=== PATIENT | female | born 1990 | race African-American/Black ===

== ENCOUNTER 2017-06-12 12:12 | Emergency (ER) | payer OTHER ==
[2017-06-12 12:14] VITALS: BP 105/62; PULSE 95; RESP 20; TEMP 98.7; O2SAT 99
--- NOTE | 2017-06-12 12:44 | PD ---
HPI Chief Complaint: Related Problem Time Seen by Provider: 12:44 Travel History International Travel<30 days: No Contact w/Intl Traveler<30days: No Traveled to known affect area: No History of Present Illness HPI 26-year-old female, approximately 15-16 weeks , with complaint of light , pink tinged spotting that started last night. Denies abdominal pain or cramping. Says the spotting is not bright red. Reports dysuria. Denies frequency, urgency, hematuria. Denies abnormal vaginal discharge, odor, itch, lesions. Denies fever, vomiting, diarrhea. Her l[facility]pc is at [facility] and last had follow-up in April. 1 para 0. No known allergies. Denies significant past medical history. No other modifying factors or associated signs and symptoms. PFSH Past Medical History Diminished Hearing: No Immunizations Current: Yes ?: Social History Alcohol Use: Yes (socially) Tobacco Use: No (never) Substance Use: No Allergies-Medications (Allergen,Severity, Reaction): Coded Allergies: No Known Allergies (Verified , 06/12/17) Reported Meds & Prescriptions Reported Meds & Active Scripts Active Keflex (Cephalexin) 500 Mg Cap 500 Mg PO Q12H 7 Days Review of Systems Except as stated in HPI: all other systems reviewed are Neg Physical Exam Narrative GENERAL: Well-nourished, well-developed female patient, in no acute distress SKIN: Warm and dry. HEAD: Atraumatic. Normocephalic. EYES: Pupils equal and round. No scleral icterus. No injection or drainage. ENT: Mucosa pink and moist. Airway patent. NECK: Trachea midline. CARDIOVASCULAR: Regular rate and rhythm. No murmur appreciated. RESPIRATORY: No accessory muscle use. Clear to auscultation. Breath sounds equal bilaterally. GASTROINTESTINAL: . Abdomen soft, non-tender, nondistended. Hepatic and splenic margins not palpable. Bowel sounds are active 4 quadrants. Bladder nontender and nondistended. PELVIC: Cervical os is closed. No vaginal blood noted on exam. MUSCULOSKELETAL: No obvious deformities. No clubbing. No cyanosis. No edema. NEUROLOGICAL: Awake and alert. Oriented 3. No obvious cranial nerve deficits. Motor grossly within normal limits. Normal speech. PSYCHIATRIC: Appropriate mood and affect; insight and judgment normal. Data Data Last Documented VS Vital Signs Date Time Temp Pulse Resp B/P Pulse Ox O2 Delivery O2 Flow Rate FiO2 06/12/17 12:30 16 06/12/17 12:14 98.7 95 105/62 99 Room Air Orders Complete Blood Count With Diff (06/12/17 12:32) Basic Metabolic Panel (Bmp) (06/12/17 12:32) Urinalysis - C+S If Indicated (06/12/17 12:32) Iv Access Insert/Monitor (06/12/17 12:32) Beta Hcg (Quant/Titer) (06/12/17 12:32) Complete Rh (06/12/17 12:43) Heart Tones (06/12/17 15:33) Urine Culture (06/12/17 15:30) Labs Laboratory Tests Test 06/12/17 06/12/17 12:45 15:30 White Blood Count 9.6 TH/MM3 Red Blood Count 3.67 MIL/MM3 Hemoglobin 10.6 GM/DL Hematocrit 31.6 % Mean Corpuscular Volume 86.0 FL Mean Corpuscular Hemoglobin 28.8 PG Mean Corpuscular Hemoglobin 33.5 % Concent Red Cell Distribution Width 14.7 % Platelet Count 218 TH/MM3 Mean Platelet Volume 7.5 FL Neutrophils (%) (Auto) 77.4 % Lymphocytes (%) (Auto) 14.6 % Monocytes (%) (Auto) 7.1 % Eosinophils (%) (Auto) 0.6 % Basophils (%) (Auto) 0.3 % Neutrophils # (Auto) 7.5 TH/MM3 Lymphocytes # (Auto) 1.4 TH/MM3 Monocytes # (Auto) 0.7 TH/MM3 Eosinophils # (Auto) 0.1 TH/MM3 Basophils # (Auto) 0.0 TH/MM3 CBC Comment DIFF FINAL Differential Comment Sodium Level 138 MEQ/L Potassium Level 3.4 MEQ/L Chloride Level 107 MEQ/L Carbon Dioxide Level 24.4 MEQ/L Anion Gap 7 MEQ/L Blood Urea Nitrogen 5 MG/DL Creatinine 0.43 MG/DL Estimat Glomerular Filtration 218 ML/MIN Rate Random Glucose 74 MG/DL Calcium Level 8.1 MG/DL Human Chorionic Gonadotropin, 48816 MIU/ML Quant Blood Type O POSITIVE Rho(D) Type POSITIVE Urine Color YELLOW Urine Turbidity CLOUDY Urine pH 8.0 Urine Specific [place] 1.014 Urine Protein NEG mg/dL Urine Glucose (UA) NEG mg/dL Urine Ketones NEG mg/dL Urine Occult Blood SMALL Urine Nitrite NEG Urine Bilirubin NEG Urine Urobilinogen LESS THAN 2.0 MG/DL Urine Leukocyte Esterase SMALL Urine RBC 25 /hpf Urine WBC 14 /hpf Urine Squamous Epithelial 1 /hpf Cells Urine Amorphous Sediment RARE Microscopic Urinalysis Comment CULTURE INDICATED MDM Medical Decision Making Medical Screen Exam Complete: Yes Emergency Medical Condition: Yes Medical Record Reviewed: Yes Differential Diagnosis Threatened miscarriage, urinary tract infection, cystitis Narrative Course Approximately 15-16 week , 26-year-old female, with light vaginal spotting started yesterday. G1, para 0. Denies abdominal pain or cramping. I spoke with Dr. Hunter, my attending physician, and he agrees with my plan of care. CBC, BMP, beta hCG, urinalysis, pelvic ultrasound ordered. 1358: Hemoglobin 10.6. Potassium 3.4. Beta hCG 70738. Blood type O positive. Rh+. 1655: Urine analysis for signs of infection. 1710: Cervical os is closed. No vaginal blood noted on digital exam. HR 156. Keflex prescribed for home. Follow-up with lcpc in one day. Instructed patient to follow up with primary care provider. Patient verbalizes understanding and agreement with treatment plan. Patient is medically cleared and stable for discharge. Discussed reasons to return to the emergency department. Patient agrees with treatment plan. The patients vital signs are stable and the patient is stable for outpatient follow-up and treatment. Patient discharged home, stable and in no acute distress. Diagnosis Primary Impression: Threatened miscarriage Additional Impression: UTI (urinary tract infection) Qualified Code: N39.0 - Urinary tract infection without hematuria, site unspecified Referrals: Radio/Tv Technician Primary Care Physician Patient Instructions: General Instructions, Threatened Miscarriage (ED), Urinary Tract Infection in Children (ED) Additional Instructions: Take antibiotics as prescribed and complete full course Drink plenty of fluids Maintain good personal hygiene Follow-up with primary care provider Follow-up with lcpc one day Return to the emergency department immediately with worsening of symptoms Med/Other Pt SpecificInfo: Prescription(s) given Scripts Cephalexin (Keflex)500 Mg [id number] Mg PO Q12H 7 Days Ref 0 Prov:Kecia Johnson 06/12/17 Disposition: DISCHARGE HOME Condition: Stable Kecia Johnson Jun 12, 2017 12:44
[2017-06-12 13:02] LABS: AUTOMATED NEUTROPHIL # 7.5 TH/MM3 (1.8-7.7); BASOPHIL % 0.3 % (0.0-2.0); EOSINOPHIL # 0.1 TH/MM3 (0-0.4); EOSINOPHIL % 0.6 % (0.0-4.0); HEMATOCRIT 31.6 % (35.0-46.0); HEMO FLAGS DIFF FINAL; LYMPH % 14.6 % (9.0-44.0); LYMPHOCYTE # 1.4 TH/MM3 (1.0-4.8); MEAN CORPUSCULAR HEMOGLOBIN 28.8 PG (27.0-34.0); MEAN CORPUSCULAR HGB CONC 33.5 % (32.0-36.0); MONO % 7.1 % (0.0-8.0); NEUT % 77.4 % (16.0-70.0); PLATELET COUNT 218 TH/MM3 (150-450); RED BLOOD COUNT 3.67 MIL/MM3 (4.00-5.30); RED CELL DISTRIBUTION WIDTH 14.7 % (11.6-17.2); WHITE BLOOD COUNT 9.6 TH/MM3 (4.0-11.0)
[2017-06-12 13:20] LABS: BICARBONATE 24.4 MEQ/L (21.0-32.0); POTASSIUM 3.4 MEQ/L (3.5-5.1)
[2017-06-12 16:24] LABS: BLOOD, URINE SMALL (NEG); COMMENT (UR) CULTURE INDICATED; CULTURE IF INDICATED CULTURE INDICATED; GLUCOSE,URINE NEG (NEG); KETONE, URINE NEG (NEG); NITRITE,URINE NEG (NEG); SQUAMOUS EPITHELIAL CELL URINE 1 /hpf (0-5); URINE COLOR YELLOW (YELLW/STRAW)
[2017-06-12] MEDS ORDERED: CEPH-460 PO (16:57)
[2017-08-03] MEDS ORDERED: PREN1CAP7 PO ×2 (09:58→17:13)
[2017-08-03] MEDS ORDERED: FERRTAB2 PO (09:58)
[2017-08-03] MEDS ORDERED: METR500T10 PO (17:13)
== END 2017-06-12 17:34 | disposition home or self-care (01) ==
LOC: NEPD 12:12
DX: O20.0 Threatened abortion (principal); O23.42 Unspecified infection of urinary tract in pregnancy, second trimester; B96.89 Other specified bacterial agents as the cause of diseases classified elsewhere; Z3A.16 16 weeks gestation of pregnancy
CPT/HCPCS: 80048; 81001; 84702; 85025; 86901; 87086; 99283

== ENCOUNTER 2017-08-31 16:07 | Emergency (ER) | payer MEDICAID, OTHER ==
[~2017-08-31] VITALS: Ht 152.4 cm; Wt 53.0 kg
[~2017-08-31 16:07] MED LIST: FERRTAB2 PO; PREN1CAP7 PO
[2017-08-31 16:08] VITALS: BP 114/66; PULSE 101; RESP 20; TEMP 98.7; O2SAT 98
--- NOTE | 2017-08-31 16:45 | PD ---
HPI Chief Complaint: ENT Complaint Time Seen by Provider: 16:39 Travel History International Travel<30 days: No Contact w/Intl Traveler<30days: No Traveled to known affect area: No History of Present Illness HPI 26-year-old female here for evaluation. She reports over the past few days she has had congestion and tender anterior cervical lymph nodes. Symptoms are mild , aggravated by congestion. She denies cough, sore throat, ear pain, fevers or chills, recent unexplained weight loss. She reports that she gets similar symptoms every year around this time of the year. She has no other complaints at this time. History Social History Alcohol Use: Yes (socially) Tobacco Use: No (never) Allergies-Medications (Allergen,Severity, Reaction): Coded Allergies: No Known Allergies (Verified Adverse Reaction, Unknown, 08/31/17) Reported Meds & Prescriptions Reported Meds & Active Scripts Active Ferralet (Multi-Vit/Iron-Folic [id number] C) 90-1-0.012-120 mg Tab 1 Caplet PO DAILY 30 Days Citranatal [place] ( W/O Vit A W/ Fe Fumar) 27-1-260 Mg Cap 1 Cap PO DAILY Citranatal [place] ( W/O Vit A W/ Fe Fumar) 27-1-260 Mg Cap 1 Cap PO DAILY Review of Systems General / Constitutional: No: Fever, Chills, Weight Loss HENT: Positive: Congestion, No: Headaches, Sore Throat Respiratory: No: Cough Skin: No Rash Physical Exam Narrative GENERAL: Well-developed well-nourished female in no acute distress SKIN: Warm and dry. HEAD: Atraumatic. Normocephalic. EYES: Pupils equal and round. No scleral icterus. No injection or drainage. ENT: No nasal bleeding or discharge. Mucous membranes pink and moist. There is no oropharyngeal erythema or exudate. Tympanic membranes appear normal without erythema or air fluid level. NECK: Trachea midline. No JVD. Mild tender anterior cervical lymphadenopathy is present. Neck is supple full range of motion. CARDIOVASCULAR: Regular rate and rhythm. No murmur appreciated. RESPIRATORY: No accessory muscle use. Clear to auscultation. Breath sounds equal bilaterally. Data Data Last Documented VS Vital Signs Date Time Temp Pulse Resp B/P (MAP) Pulse Ox O2 Delivery O2 Flow Rate FiO2 08/31/17 16:08 98.7 101 20 114/66 (82) 98 Room Air [facility] Medical Screen Exam Complete: Yes Emergency Medical Condition: No Narrative Course The patient appears to have reactive lymphadenopathy and rhinitis. This is most likely viral. She understands the importance of following up with her primary care physician if lymphadenopathy persists after her cold symptoms have resolved. A medical screening exam was performed: At the time of evaluation the presenting medical condition was determined not to be of an emergent nature. The patient was given the option of receiving additional care, but declined. Patient was given options for additional community resources from which to obtain care. The Patient Has Been advised to seek medical attention for their presenting complaint. The patient has been advised to return to the ER at any time if an emergent condition develops. Primary Impression: Encounter for medical screening examination Patrick Steiner Aug 31, 2017 16:45
== END 2017-08-31 16:50 | disposition left against medical advice (07) ==
LOC: NEPK 16:07
DX: R59.1 Generalized enlarged lymph nodes (principal); J31.0 Chronic rhinitis; Z79.899 Other long term (current) drug therapy
CPT/HCPCS: 99281

== ENCOUNTER 2017-11-06 23:36 | Inpatient (IN) | payer MEDICAID ==
[~2017-11-06] VITALS: Ht 154.9 cm; Wt 59.0 kg
[~2017-11-06 23:36] MED LIST changes: -FERRTAB2 PO
[2017-11-07] VITALS (85 sets, daily range): BP systolic 91–128; BP diastolic 50–101; PULSE 81–115; RESP 1–20; TEMP 98–99.1
[2017-11-07] MEDS: LACTATED RINGER'S 1000 ML INJ 1,000 ML IV SCH ×2 (00:26→02:47)
[2017-11-07] MEDS ORDERED: LACTATED RINGER'S 1000 ML INJ 1,000 ML IV PRN (00:26)
--- NOTE | 2017-11-07 00:26 | HHI.HP ---
History & Physical H&P Patient Name: Niyah Mazariegos Unit Number: [id number] Date of : 1990 Patient Status: Registered Emergency Room Attending Doctor: Phil Booth MD HPI HPI Chief Complaint Contractions Date Seen: Nov 07, 2017 Time Seen: 00:21 Travel History International Travel<30 Days: No Contact w/Intl Traveler<30Days: No Known Affected Area: No History of Present Illness HPI 27-year-old primigravida at 40 weeks and 2 days gestation who comes reporting increasing contractions throughout the day. She also has lost her mucous plug. She denies any rupture membranes or bleeding. History (Limited) History Past Medical History Medical History: Denies Significant Hx Past Surgical History Surgical History: No Previous Surgery Family History Family History: Negative Social History Alcohol Use: No Tobacco Use: No Substance Abuse: No Allergies-Medications Allergies-Medications (Allergen,Severity, Reaction): Coded Allergies: No Known Allergies (Verified Adverse Reaction, Unknown, 11/07/17) Home Meds Active Scripts W/O Vit A W/ Fe Fumar (Citranatal [place]) 27-1-260 Mg Cap, 1 CAP PO DAILY for Nutritional Supplement, #30 CAPLET 3 Refills Prov:Meli Morrow CNM [facility] 09/28/17 ROS Review of Systems Except as stated in HPI: all other systems reviewed are Neg Physical Exam Physical Exam Narrative GENERAL: Well-nourished, well-developed patient. SKIN: Warm and dry. HEAD: Normocephalic and atraumatic. EYES: No scleral icterus. No injection or drainage. ENT: No nasal drainage noted. Mucous membranes pink. Airway patent. NECK: Supple, trachea midline. No JVD. CARDIOVASCULAR: Regular rate and rhythm without murmurs, gallops, or rubs. RESPIRATORY: Breath sounds equal bilaterally. No accessory muscle use. ABDOMEN/GI: Abdomen soft, non-tender, bowel sounds present, no rebound, no guarding Gravid to [-] weeks size Fundal Height: [-36] GENITOURINARY: External Genitalia: intact and normal in appearance BUS glands: [-Negative] Cervix: [-] Dilatation: [3-] Effacement: [-100 Station: [--2] Presentation: [-Vertex] Membranes: [intact] Uterine Contractions: [Every 2-3-] FHT's: Category: [-1] Baseline: [-] Reactive: [Yes-] Variability: [-] Decels: [-] EXTREMITIES: No cyanosis or edema. BACK: Nontender without obvious deformity. No CVA tenderness. NEUROLOGICAL: Awake and alert. Motor and sensory grossly within normal limits. Five out of 5 muscle strength in all muscle groups. Normal speech. Data Data Data Vital Signs Reviewed: Yes Group B Strep: Negative MDM MDM Medical Record Reviewed: Yes Narrative Course / MDM Assessment: 40 weeks 2 days gestation in early labor Plan: Admit for labor management. Phil Booth MD Nov 07, 2017 00:25 Phil Booth MD Nov 07, 2017 00:26
[2017-11-07] MEDS ORDERED: SODIUM CHLORID 0.9% 500 ML INJ 500 ML IV PRN (00:30)
[2017-11-07] MEDS ORDERED: ONDANSETRON HCL 4 MG/2 ML VIAL IV PUSH PRN (00:30)
[2017-11-07] MEDS ORDERED: CITRIC ACID-SODIUM CITRATE LIQ 30 ML UDC PO SCH (00:30)
[2017-11-07] MEDS ORDERED: LIDOCAINE HCL 1% 50 ML VIAL INFIL PRN (00:30)
[2017-11-07] MEDS ORDERED: MINERAL OIL 10 ML VIAL TOPICAL PRN (00:30)
[2017-11-07] MEDS ORDERED: OXYTOCIN 30 UNITS-500ML PREMIX 500 ML IV ONE (00:30)
[2017-11-07] MEDS ORDERED: LIDOCAINE HCL 1% 50 ML VIAL I-DERMAL PRN (00:30)
[2017-11-07] MEDS ORDERED: SODIUM CHLOR 0.9% 1000 ML INJ 1,000 ML IV PRN (00:46)
[2017-11-07 01:09] LABS: AUTOMATED NEUTROPHIL # 9.5 TH/MM3 (1.8-7.7); BASOPHIL % 0.2 % (0.0-2.0); EOSINOPHIL # 0.1 TH/MM3 (0-0.4); EOSINOPHIL % 0.6 % (0.0-4.0); HEMATOCRIT 33.7 % (35.0-46.0); LYMPH % 10.2 % (9.0-44.0); LYMPHOCYTE # 1.2 TH/MM3 (1.0-4.8); MEAN CELL VOLUME 81.9 FL (80.0-100.0); MEAN CORPUSCULAR HEMOGLOBIN 26.7 PG (27.0-34.0); MEAN CORPUSCULAR HGB CONC 32.6 % (32.0-36.0); MEAN PLATELET VOLUME 8.6 FL (7.0-11.0); MONO % 7.6 % (0.0-8.0); MONOCYTE # 0.9 TH/MM3 (0-0.9); NEUT % 81.4 % (16.0-70.0); PLATELET COUNT 217 TH/MM3 (150-450); RED BLOOD COUNT 4.11 MIL/MM3 (4.00-5.30); RED CELL DISTRIBUTION WIDTH 15.3 % (11.6-17.2); WHITE BLOOD COUNT 11.7 TH/MM3 (4.0-11.0)
[2017-11-07] MEDS ORDERED: fentaNYL 2MCG-BUPIV 0.125% INJ 100 ML ONE ×2 (01:18→01:20)
[2017-11-07] MEDS ORDERED: DO NOT ADMINISTER ANTICOAGULANTS PRN (01:20)
[2017-11-07] MEDS ORDERED: fentaNYL 2MCG-BUPIV 0.125% 100 ML EPIDURAL SCH (01:20)
[2017-11-07] MEDS ORDERED: NO SYSTEM NARCOTICS PRN (01:20)
[2017-11-07] MEDS ORDERED: ePHEDrine/NS 25 MG/5 ML SYRINGE ONE (02:18)
[2017-11-07] MEDS ORDERED: ePHEDrine/NS 25 MG/5 ML SYRINGE IV PUSH PRN (02:45)
--- NOTE | 2017-11-07 08:06 | PD.LABORPN ---
Subjective Subjective Ms. Mazariegos was seen this morning at ~0730; doing well without complaints. (Reji Mustafa MD, R3) Objective Vital Signs Vital Signs Date Time Temp Pulse Resp B/P (MAP) Pulse Ox O2 Delivery O2 Flow Rate FiO2 11/07/17 07:45 18 11/07/17 07:30 101 113/72 (86) 11/07/17 07:15 92 111/65 (80) 11/07/17 07:00 102 112/78 (89) 11/07/17 06:45 99 117/77 (90) 11/07/17 06:30 95 123/77 (92) 11/07/17 06:30 18 11/07/17 06:15 88 118/72 (87) 11/07/17 06:00 95 110/69 (83) 11/07/17 06:00 98.1 11/07/17 05:54 18 11/07/17 05:45 92 110/64 (79) 11/07/17 05:30 20 11/07/17 05:30 104 115/75 (88) 11/07/17 05:15 104 117/72 (87) 11/07/17 05:00 95 116/60 (78) 11/07/17 04:56 1 11/07/17 04:56 18 11/07/17 04:45 102/54 (70) 11/07/17 04:45 83 11/07/17 04:30 89 100/51 (67) 11/07/17 04:29 18 11/07/17 04:15 95 105/55 (72) 11/07/17 04:00 90 102/57 (72) 11/07/17 04:00 18 11/07/17 03:54 86 104/56 (72) 11/07/17 03:40 81 11/07/17 03:30 97/53 (68) 11/07/17 03:30 18 11/07/17 03:15 86 109/55 (73) 11/07/17 03:10 88 11/07/17 03:00 18 11/07/17 03:00 93 110/55 (73) 11/07/17 02:55 83 11/07/17 02:50 88 11/07/17 02:45 107/56 (73) 11/07/17 02:40 91 11/07/17 02:36 90 103/50 (67) 11/07/17 02:32 98 99/58 (72) 11/07/17 02:30 98.0 18 11/07/17 02:27 92 111/59 (76) 11/07/17 02:25 92 11/07/17 02:24 94/63 (73) 11/07/17 02:24 87 11/07/17 02:21 94 91/57 (68) 11/07/17 02:20 94 11/07/17 02:17 89 11/07/17 02:17 95/50 (65) 11/07/17 02:15 92/53 (66) 11/07/17 02:15 110 11/07/17 02:15 90 11/07/17 02:10 107 11/07/17 02:05 98 11/07/17 02:00 89 100/58 (72) 11/07/17 02:00 97 11/07/17 01:59 96 102/64 (77) 11/07/17 01:58 18 11/07/17 01:55 91 11/07/17 01:54 90 106/66 (79) 11/07/17 01:51 94 11/07/17 01:51 102/65 (77) 11/07/17 01:50 102 11/07/17 01:49 97 102/57 (72) 11/07/17 01:45 110 11/07/17 01:45 107 116/78 (91) 11/07/17 01:42 107 108/69 (82) 11/07/17 01:40 118/83 (95) 11/07/17 01:36 115 101/68 (79) 11/07/17 01:35 89 11/07/17 01:33 90 118/72 (87) 11/07/17 01:30 92 11/07/17 01:30 104 11/07/17 01:30 118/63 (81) 11/07/17 01:29 91 115/97 (103) 11/07/17 01:20 18 11/07/17 00:56 98.3 18 11/07/17 00:56 100 114/77 (89) Objective Pelvic Exam: Cervix: 9 Dilatation: 100% Effacement: -1 Station: -1 Presentation: V Membranes: Intact Uterine Contractions: q2-3 min FHT's: Category: 1 Baseline: 140 Reactive: Y Variability: Mod Decels: None Weeks Gestation: 40 Pt started active labor?: Yes Medical induction of labor?: No Artificial rupture of membrane: Yes Artificial ROM date: Nov 07, 2017 Artifical ROM time: 07:30 (Reji Mustafa MD, R3) Assessment/Plan Problem List: (1) Normal labor and delivery ICD Codes: O80 - Encounter for full-term uncomplicated delivery Status: Acute Assessment and Plan 27 yo G1 at 40 2/7 weeks GA in active labor -s/p Epidural (0150 11/07) -Reassuring maternal vital signs -Cervix 9/100/-1 -Bulging bag on exam; AROM was performed at [address] Zavaleta -Cat 1 rhythm -Contractions q2-3min (Reji Mustafa MD, R3) Assessment and Plan Patient seen and evaluated with resident under direct supervision, agree with assessment and plan. (Phil Booth MD) Reji Mustafa MD, R3 Nov 07, 2017 08:06 Phil Booth MD Nov 07, 2017 09:03
--- NOTE | 2017-11-07 10:37 | PD.OB.DELI ---
Weeks gestation: 40 Pt started active labor?: Yes Medical induction of labor?: No Artificial rupture of membrane: Yes Artificial ROM date: Nov 07, 2017 Artifical ROM time: 07:30 Anesthesia: Epidural Episiotomy: None Vaginal Delivery: Normal, Spontaneous Presentation: Vertex Nuchal Cord: None Delayed cord clamping (45 sec): Yes : Male Delivery date: Nov 07, 2017 Delivery time: 09:44 One Minute : 8 Five Minute : 9 Weight: Not yet weighed Placenta: Spontaneous delivery, Intact, 3 vessel cord Laceration: Vaginal laceration, 2 deg Repair: Vicryl interrupted, Vicryl running Estimated blood loss: 200 mL Anneliese Zavaleta MD R1 Nov 07, 2017 10:37
[2017-11-07] MEDS ORDERED: ZOLPIDEM TARTRATE 5 MG TAB PO PRN (11:45)
[2017-11-07] MEDS ORDERED: ALUMINUM/MAGNESIUM/SIMETH 30 ML CUP PO PRN (11:45)
[2017-11-07] MEDS ORDERED: DOCUSATE SODIUM 50 MG/SENNA 8.6 MG TAB PO PRN (11:45)
[2017-11-07] MEDS ORDERED: SODIUM CHLORIDE 0.9% FLUSH 10 ML FLUSH IV FLUSH PRN (11:45)
[2017-11-07] MEDS ORDERED: ONDANSETRON ODT 4 MG TAB PO PRN (11:45)
[2017-11-07] MEDS ORDERED: WITCH HAZEL 50%/GLYCERIN 12.5% 40 PAD JAR TOPICAL PRN (11:45)
[2017-11-07] MEDS ORDERED: OXYTOCIN 30 UNITS-500ML PREMIX 500 ML IV SCH (11:45)
[2017-11-07] MEDS ORDERED: SODIUM CHLORIDE 0.9% FLUSH 10 ML FLUSH IV FLUSH SCH (11:45)
[2017-11-07] MEDS ORDERED: BENZOCAINE 20% TOPICAL SPRAY 60 ML CAN TOPICAL PRN (11:45)
[2017-11-07] MEDS ORDERED: MEASLES, MUMPS, RUBELLA VACCINE 0.5 ML VIAL SQ ONE (16:00)
[2017-11-07] MEDS ORDERED: DIPHTH/TETANUS/ACEL PERTUSSIS (BOOSTER) 0.5 ML VIAL/PFS IM ONE (16:00)
[2017-11-08 08:00] VITALS: BP 103/75; PULSE 81; RESP 18; TEMP 98
--- NOTE | 2017-11-08 13:14 | HHI.OB ---
Subjective Post Day: 1 Remarks Ms. Matson is a 27 yo who is PPD 1 from vaginal delivery 11/07 Patient is doing well at this time; she has some pain in vaginal area from sutures but reports that it is tolerable. No significant vaginal bleeding reported. Patient is ambulating well. Patient voiding normally without pain. Patient passing gas normally; no bowel movements. Patient does not report significant abdominal pain; she has not been taking Percocet/Motrin routinely. No shortness of breath, chest pain, or lower extremity swelling. Objective Vitals/I&O Vital Signs Date Time Temp Pulse Resp B/P (MAP) Pulse Ox O2 Delivery O2 Flow Rate FiO2 11/08/17 08:00 98.0 81 18 103/75 (84) 11/07/17 20:00 104 105/56 (72) 11/07/17 20:00 98.4 20 Objective Remarks GENERAL: Well-nourished, well-developed patient. CARDIOVASCULAR: Regular rate and rhythm without murmurs. Normal perfusion RESPIRATORY: Breath sounds equal bilaterally. No accessory muscle use. ABDOMEN/GI: Abdomen soft, non-tender. Fundus: Firm, non-tender at umbilicus. GENITOURINARY: Light to moderate bleeding. EXTREMITIES: No cyanosis or edema, non-tender, without signs of DVT Medications and IVs Current Medications Medications (Trade) Dose Ordered Sig/Vanessa Route Start Time Stop Time Status Last Admin (NS Flush) 2 ml BID IV FLUSH 11/07/17 11:45 (NS Flush) 2 ml UNSCH PRN IV FLUSH 11/07/17 11:45 (Tylenol) 650 mg Q4H PRN PO 11/07/17 11:45 (Motrin) 800 mg Q8H PRN PO 11/07/17 11:45 (Americaine 20% Top Spr) 1 spray Q4H PRN TOPICAL 11/07/17 11:45 (Tucks Pads) 1 applic QID PRN TOPICAL 11/07/17 11:45 (Cathy-Colace) 2 tab Q12H PRN PO 11/07/17 11:45 (Ambien) 5 mg HS PRN PO 11/07/17 11:45 (Mag-Al Plus Susp Liq) 15 ml Q8H PRN PO 11/07/17 11:45 (Zofran Odt) 4 mg Q6H PRN PO 11/07/17 11:45 Assessment/Plan Problem List: (1) Normal labor and delivery ICD Codes: O80 - Encounter for full-term uncomplicated delivery Status: Acute Assessment and Plan 27 yo who is PPD 1 from vaginal delivery 11/07 -Continue routine care -PRN Percocet, Motrin; patient encouraged to take for vaginal irritation as needed -Encourage OOB -Continue to monitor VS, vaginal bleeding, voiding/stooling Reji Mustafa MD, R3 Nov 08, 2017 13:14
[2017-11-08 20:00] VITALS: BP 105/58; PULSE 86; RESP 18; TEMP 97.7
[2017-11-08] MEDS: IBUPROFEN 800 MG TAB PO PRN (21:26)
[2017-11-09] MEDS: ACETAMINOPHEN 325 MG TAB PO PRN ×2 (03:34→08:50)
--- NOTE | 2017-11-09 07:23 | HHI.OB ---
Subjective Post Day: 2 Remarks Ms. Matson is a 27 yo who is PPD 2 from vaginal delivery 11/07 Patient is doing well at this time. Patient continues to have some vaginal stinging from sutures but reports that it is improving. No dysuria. Patient with decreased vaginal bleeding. Patient is ambulating well. Patient voiding normally without pain. Patient eating normally; she has had a normal bowel movement. No shortness of breath, chest pain, or lower extremity swelling. Objective Vitals/I&O Vital Signs Date Time Temp Pulse Resp B/P (MAP) Pulse Ox O2 Delivery O2 Flow Rate FiO2 11/08/17 20:00 97.7 86 18 105/58 (74) 11/08/17 08:00 98.0 81 18 103/75 (84) Objective Remarks GENERAL: Well-nourished, well-developed patient. CARDIOVASCULAR: Regular rate and rhythm without murmurs. Normal perfusion RESPIRATORY: CTAB, normal rate ABDOMEN/GI: Abdomen soft, non-tender. Fundus: Firm, non-tender at umbilicus. GENITOURINARY: Light bleeding. EXTREMITIES: No cyanosis or edema, non-tender, without signs of DVT Medications and IVs Current Medications Medications (Trade) Dose Ordered Sig/Vanessa Route Start Time Stop Time Status Last Admin (NS Flush) 2 ml BID IV FLUSH 11/07/17 11:45 (NS Flush) 2 ml UNSCH PRN IV FLUSH 11/07/17 11:45 (Tylenol) 650 mg Q4H PRN PO 11/07/17 11:45 11/09/17 03:34 (Motrin) 800 mg Q8H PRN PO 11/07/17 11:45 11/08/17 21:26 (Americaine 20% Top Spr) 1 spray Q4H PRN TOPICAL 11/07/17 11:45 (Tucks Pads) 1 applic QID PRN TOPICAL 11/07/17 11:45 (Cathy-Colace) 2 tab Q12H PRN PO 11/07/17 11:45 (Ambien) 5 mg HS PRN PO 11/07/17 11:45 (Mag-Al Plus Susp Liq) 15 ml Q8H PRN PO 11/07/17 11:45 (Zofran Odt) 4 mg Q6H PRN PO 11/07/17 11:45 Assessment/Plan Problem List: (1) Normal labor and delivery ICD Codes: O80 - Encounter for full-term uncomplicated delivery Status: Acute Assessment and Plan 27 yo who is PPD 2 from vaginal delivery 11/07 -Continue routine care -Patient stable for discharge today -Normal VS, voiding/stooling normally, mild vaginal bleeding, ambulating normally -Patient will f/u in 4-6 weeks; discussed control today -Will prescribe motrin at discharge for mild vaginal discomfort for sutures Reji Mustafa MD, R3 Nov 09, 2017 07:23
[2017-11-09 08:00] VITALS: BP 100/65; PULSE 80; RESP 12; TEMP 99.2
--- NOTE | 2017-11-09 08:27 | HHI.DCPOC ---
Discharge Care Plan Diagnosis: (1) care and examination Report Symptoms to Your Doctor -Temperature above 100.5 degrees -Redness, of incision or excessive or foul smelling drainage -Unusual pain or calf pain -Increased vaginal bleeding -Painful or difficulty urinating -Feelings of extreme sadness or anxiety after 2 weeks Goals to Promote Your Health * To prevent worsening of your condition and complications * To maintain your health at the optimal level Directions to Meet Your Goals Take your medications as prescribed Follow your dietary instruction Follow activity as directed Ensure plenty of rest for recovery Drink fluids for hydration Keep your appointments as scheduled Take your immunizations and boosters as scheduled If your symptoms worsen call your PCP, if no PCP go to Urgent Care Center or Emergency Room Smoking is Dangerous to Your Health. Avoid second hand smoke Call the 24-hour crisis hotline for domestic abuse at Reji Mustafa MD, R3 Nov 09, 2017 08:27
[2017-11-09] MEDS ORDERED: IBUP1TAB7 PO (08:28)
[2017-11-09] MEDS: IBUPROFEN 800 MG TAB PO PRN (08:49)
== END 2017-11-09 16:22 | disposition home or self-care (01) | DRG 775 ==
LOC: HOBED 23:36 → H2EB 11-07 00:26 → H1EA 11-07 12:34
PROVIDERS: ADMIT Obstetrics & Gynecology; ATTEND Obstetrics & Gynecology
PROC: 10E0XZZ Delivery of Products of Conception, External Approach (ICD-10-PCS; principal; 2017-11-07)
PROC: 0UQGXZZ Repair Vagina, External Approach (ICD-10-PCS; 2017-11-07)
PROC: 10907ZC Drainage of Amniotic Fluid, Therapeutic from Products of Conception, Via Natural or Artificial Opening (ICD-10-PCS; 2017-11-07)
PROC: 00HU33Z Insertion of Infusion Device into Spinal Canal, Percutaneous Approach (ICD-10-PCS; 2017-11-07)
PROC: 3E0R3BZ Introduction of Anesthetic Agent into Spinal Canal, Percutaneous Approach (ICD-10-PCS; 2017-11-07)
DX: O71.4 Obstetric high vaginal laceration alone (principal); Z37.0 Single live birth; Z3A.40 40 weeks gestation of pregnancy
CPT/HCPCS: 59025; 80307; 85025; 86900; 86901; 90715; J2590; J7120